=== PATIENT | female | born 1955 | race Caucasian/White ===

== ENCOUNTER 2024-11-28 16:07 | Emergency (ER) | payer OTHER, SELFPAY ==
--- NOTE | ~2024-11-28 | CT_ITS ---
CLINICAL HISTORY: hypertensive, HUFF CT head without contrast Comparison: None provided Findings: No intra-axial mass, midline shift, hydrocephalus, or acute hemorrhage. Involutional change of brain parenchyma, compatible with age. Moderate white matter disease. 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 The visualized paranasal sinuses and mastoid air cells are normal. The orbits are unremarkable. No skull fracture. IMPRESSION: 1. No acute intracranial findings. This document has been electronically signed by: Chaparrita Hernández MD on 11/28/2024 18:30:10
--- NOTE | 2024-11-28 16:10 | ECG_ITS ---
Test Reason : CP Blood Pressure : */* mmHG Vent. Rate : 67 BPM Atrial Rate : 67 BPM P-R Int : 172 ms QRS Dur : 70 ms QT Int : 418 ms P-R-T Axes : 13 6 38 degrees QTcB Int : 441 ms Normal sinus rhythm Normal ECG No previous ECGs available Referred By: Cassie Stoner Electronically Signed By: Donell Christiansen
--- NOTE | 2024-11-28 16:23 | ED.CHESTPAIN ---
HPI - Chest Pain General Chief Complaint: Recheck/Abnormal Lab/Rx Stated Complaint: High BP, headache, chest pain Time Seen by Provider: 11/28/24 16:39 Source: patient, RN notes reviewed and old records reviewed Mode of arrival: ambulatory Limitations: no limitations History of Present Illness ED Provider: Meliza JACOB narrative: 69-year-old female with past medical history significant for diabetes, hypertension, hyperlipidemia, previous CVA presents for evaluation of chest pain and headache. Patient reports a previous CVA about 6 years ago and states that she feels similar now to when she had a previous CVA. She has chronic weakness in the left side, she denies any difficulty speaking, slurred speech or facial droop. She reports that she has been compliant with all her medications except for her amlodipine which she ran out of a few days ago she takes clopidogrel but is not anticoagulated. The patient reports that her symptoms started around 10 a.m. yesterday morning, about 32 hours ago. Related Data Previous Rx's ?Medication ?Instructions ?Recorded amlodipine 10 mg tablet 10 mg PO DAILY #30 tabs 11/28/24 Allergies Allergy/AdvReac Type Severity Reaction Status Date / Time No Known Allergies (No Known Allergy Verified 11/28/24 16:26 Allergies*) Review of Systems Constitutional: Constitutional: Denies body ache(s), Denies chills, Denies fever(s) and Reports headache(s) Eyes: Eyes: Denies blurry vision and Denies exophthalmos ENT: Reports dizziness and Reports headache(s) Cardiovascular: Cardiovascular: Reports chest pain, Reports chest pain at rest and Denies dyspnea on exertion Respiratory: Respiratory: Denies cough and Denies dyspnea on exertion Gastrointestinal: Gastrointestinal: Denies abdominal pain, Denies nausea and Denies vomiting Musculoskeletal: Musculoskeletal: Denies back pain Neurologic: Reports dizziness and Reports headache(s) Psychiatric: Psychiatric: Denies anxiety PMFSH Social History Social History Use of substances other than those prescribed or required for medical reasons: Unknown Advance Directives: No Advance Directives Information Provided: No Physical Exam Vital Signs: Vital Signs: Last Vital Signs Temp 97.9 F 11/28/24 16:24 Pulse 64 11/28/24 18:00 Resp 18 11/28/24 16:24 BP 171/83 H 11/28/24 18:00 Pulse Ox 97 11/28/24 16:51 O2 Del Method Room Air 11/28/24 16:51 BMI result Body Mass Index 29.7 Const: General: healthy appearing, comfortable, no acute distress, alert and awake Nutritional Appearance: well nourished Orientation/consciousness: patient oriented x3 HEENT: Head: Yes normocephalic and Yes atraumatic Eyes: Eyelids: Yes eyelids normal Conjunctivae: conjunctivae normal Sclerae: sclerae normal Corneas: corneas normal Pupils: Equal, round and reactive pupils present EOM: EOMs intact bilaterally Neck: Neck: Yes full ROM Resp: Effort & Inspection: normal respiratory effort, able to speak in complete sentences and not labored Cardio: Rate: regular rate Rhythm: regular rhythm GI: Inspection: No distended Palpation (GI): Soft to palpation, not firm, nontender, no guarding and not rigid Skin: General skin exam: elasticity normal Neuro: General: patient oriented x3 Cranial nerves: Yes Equal, round and reactive pupils present and Yes Bilaterally intact EOM present Cognition (Neuro): normal cognition Motor exam (neuro): strength not 5/5 throughout (3/5 strength with abduction of the left upper extremity, 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 Full HPI, ROS, assessment and treatment plan per primary provider in the Main ED. Hx: 69 yo F here for eval of chest tightness, headache, and feeling dizzy x5 days. ambulates w/ cane at baseline. hx CVA 6-7 yrs ago w/ residual left sided weakness. on AC. PE/vitals: very hypertensive. residual weakness noted to LUE - 4/5 strength. patient states unchanged from prior CVA. exam otherwise nonfocal. no facial droop, slurred speech. Plan: labs, CT, ekg Reevaluation(s) Reevaluation #1: Patient's workup largely unremarkable, EKG is nonischemic, she rules out for ACS, head CT is unremarkable. Blood pressure has improved. The patient will be discharged to follow up with the PCP Time: 18:54 Medications Administered Discontinued Medications Generic Name Dose Route Start Last Admin Trade Name Freq PRN Reason Stop Dose Admin Amlodipine Besylate 10 mg 11/28/24 17:37 11/28/24 17:52 Amlodipine Besylate 10 Mg Tablet PO 11/28/24 17:38 10 mg ONCE ONE Administration Protocol Medical Decision Making Medical Decision Making [facility] Narrative: 69-year-old female presents for evaluation of headache and chest pain. She also complains of some dizziness. Her symptoms are reminiscent of her previous stroke from about 6 years ago per her report. However on exam she does have chronic right-sided weakness which is residual from her last stroke but otherwise has no focal neurologic deficits. She has no acute findings to suggest an acute CVA. Her symptoms started well over 24 hours ago and I have a very low suspicion for large vessel occlusion given that she is quite well appearing with a reassuring exam. Her blood pressure was significantly elevated on arrival at 209/87. This has improved to 170 3/86. I did give her a dose of amlodipine which she has not been able to take for the last few days because she ran out. Her labs are reassuring, she has no infectious symptoms such as fever, chills or URI symptoms. Plan for EKG but her initial troponin was negative despite over 24 hours of chest pain. patient's cerebellar exam is reassuring Differential Diagnosis Differential Diagnoses: The differential diagnosis associated with the presentation includes hypertension Chest pain Anxiety ACS CVA less likely Admission/Observation Consideration of admission/observation: Escalation of care including admission/observation considered Lab Data MDM Lab Attestation statement: I reviewed the patient's lab results. no leukocytosis or anemia. Normal platelet count. No significant electrolyte abnormalities warranting intervention. Troponin undetectable 11/28/24 16:43 11/28/24 16:43 Labs: Lab Results 11/28/24 Range/Units 16:43 WBC 7.6 (4.8-10.8) X10*3/uL RBC 4.89 (4.20-5.50) X10*6/uL Hgb 13.6 (12.0-16.0) g/dl Hct 40.1 (37.0-47.0) % MCV 82.0 (80.0-98.0) fL MCH 27.8 (27.0-33.0) pg MCHC 33.9 (31.0-35.0) g/dl RDW 14.4 (11.0-16.0) % Plt Count 279 (160-400) X10*3/uL MPV 9.7 (9.4-12.3) fL Immature Gran % (Auto) 0.5 H (0.0-0.4) % Neut % (Auto) 43.7 L (45-73) % Lymph % (Auto) 43.0 H (20-40) % [place] % (Auto) 7.3 (2-11) % Eos % (Auto) 4.6 H (0-4) % Baso % (Auto) 0.9 (0-2) % Lymph # (Auto) 3.3 (1.2-4.9) X10*3/uL [place] # (Auto) 0.6 (0.1-1.2) X10*3/uL Eos # (Auto) 0.4 (0.0-0.4) X10*3/uL Baso # (Auto) 0.1 (0.0-0.2) X10*3/uL Abs Immat Gran (auto) 0.04 H (0.00-0.03) X10*3/uL Absolute Neuts (auto) 3.3 (2.0-8.3) x10*3/uL Absolute Nucleated RBC 0.000 (0.0-0.012) X10*3/uL Nucleated RBC % (auto) 0.0 (0.0-0.2) /100WBC Sodium 142 (135-145) mmol/L Potassium 4.1 (3.3-5.1) mmol/L Chloride 106 (96-108) mmol/L Carbon Dioxide 27 (22-29) mmol/L Anion Gap 13 (12-20) BUN 12 (9-16) mg/dL Creatinine 1.04 (0.5-1.4) mg/dL Estim Creat Clear Calc 48.4 Estimated GFR 52 Random Glucose 117 H (60-115) mg/dL Calcium 8.7 (8.4-10.2) mg/dL Magnesium 1.9 (1.6-2.6) mg/dL Total Bilirubin 0.5 (0.0-1.0) mg/dL AST 81 H (5-31) U/L ALT 38 H (0-31) U/L Alkaline Phosphatase 117 (39-117) U/L Troponin I High Sens < 2.7 (<3.5-17.0) ng/L Total Protein 8.8 H (6.5-8.0) g/dL Albumin 4.3 (3.5-5.0) g/dL Lipase 27 (8-78) U/L Independent Interpretation I performed an independent interpretation of an: EKG ( normal sinus rhythm with a rate of 67 beats per minute. No ST changes) Discharge Plan Discharge Clinical Impression: Chest pain, Hypertension Patient Disposition: Home, Self-Care Instructions: Chest Pain (ED), Chronic Hypertension (ED) Additional Instructions: your workup in the ER today was reassuring. This includes your blood work, EKG and a CT scan of your head. Your blood pressure was elevated today and did improve with your amlodipine. I sent a prescription to your pharmacy. Follow up with your primary doctor, return for new or worsening symptoms Prescriptions: New amlodipine 10 mg tablet 10 mg PO DAILY Qty: 30 0RF Print Language: Sudanese
[2024-11-28 16:24] VITALS: BP 209/87; PULSE 69; RESP 18; TEMP 36.6; O2SAT 97; BMI 29.7
--- NOTE | 2024-11-28 16:38 | MHC.EDTECH ---
Patient brought into triage area,EKG taken per order and signed by provider. Patient brought back into triage area,labs were drawn and sent to lab.
[2024-11-28 16:48] LABS: MANUAL DIFF FLAG NO
[2024-11-28 16:49] LABS: Hematocrit 40.1 % (37.0-47.0); Hemoglobin 13.6 g/dl (12.0-16.0); Imm Gran Abs Auto 0.04 X10*3/uL (0.00-0.03); Imm Gran Pct Auto 0.5 % (0.0-0.4); Lymphocytes Absolute Auto 3.3 X10*3/uL (1.2-4.9); Mean Corpuscular HGB Conc 33.9 g/dl (31.0-35.0); Mean Corpuscular Hemoglobin 27.8 pg (27.0-33.0); Mean Corpuscular Volume 82.0 fL (80.0-98.0); NRBC Abs Auto 0.000 X10*3/uL (0.0-0.012); NRBC Pct Auto 0.0 /100WBC (0.0-0.2); Platelet Count 279 X10*3/uL (160-400); Red Blood Count 4.89 X10*6/uL (4.20-5.50); White Blood Count 7.6 X10*3/uL (4.8-10.8)
[2024-11-28 16:51] VITALS: BP 191/91; PULSE 68; O2SAT 97
--- OUTSIDE RECORDS SUMMARY | 2024-11-28 16:59 | XMS_ITS | Clinical Summary ---
Author Organization [facility] Address [address] [place] [address] Care Team Providers Care Maintenance Service Dispatcher Name Role Phone Wolf Quezada PA-C Primary Care Provider [phone] Source Comments PLEASE NOTE, if this patient is a minor, it may be UNLAWFUL to discuss sensitive information that is contained in these records (such as FAMILY PLANNING, MENTAL HEALTH or SUBSTANCE ABUSE) with the minor patient's parent or other person without the patient's specific authorization.[facility] Allergies No known active allergies Medications miscellaneous medical supply miscIndications:Ch ronic pain of left knee by miscellaneous route as needed (shower) Shower chair: Life time use 1 Each 12/28/19 19 Active tolterodine (DETROL LA) 4 mg 24 hr capsule Take 4 mg by mouth once daily 10/26/19 21 Active MISCELLANEOUS MEDICAL SUPPLY MISCIndications:Hi story of CVA with residual deficit,Controlled type 2 diabetes mellitus with diabetic nephropathy, with long-term current use of insulin (CMS & HHS-HCC) Commode x99 years 5'1 168 lbs 1 Each 11/25/19 23 Active lancetsIndications :Controlled type 2 diabetes mellitus with diabetic nephropathy, with long-term current use of insulin (CMS & HHS-HCC) ONCE TOUCH LANCETS, TEST BLOOD GLUCOSE ONCE DAILY DXE11.21 100 Each 01/12/20 23 Active blood-glucose meter monitoring kitIndications:Con trolled type 2 diabetes mellitus with diabetic nephropathy, with long-term current use of insulin (CMS & HHS-HCC) as needed for blood glucose monitoring ONE TOUCH KIT 1 Each 01/12/20 23 Active estradioL (ESTRACE) 0.01 % (0.1 mg/gram) vaginal cream APPLY VAGINALLY TO THE VAGINAL AREA 3 TIMES PER WEEK. Prescribed By: SHERI DONG 05/04/19 24 Active gabapentin (NEURONTIN) 100 mg capsuleIndications :Controlled type 2 diabetes mellitus with diabetic nephropathy, with long-term current use of insulin ([facility]),Foot pain, bilateral Take 1 Capsule by mouth 3 (three) times daily 90 Capsule 2 06/30/19 24 Active ONETOUCH ULTRA TEST strips Authorized by: DORY PELLETIER 01/03/20 24 Active polyethylene glycol, PEG, 3350 (GLYCOLAX) 17 gram/dose powderIndications: Constipation, unspecified constipation type TAKE 17 GRAMS BY MOUTH ONCE DAILY NEEDED FOR CONSTIPATION 510 g 11 01/19/20 24 Active amLODIPine (NORVASC) 10 mg tabletIndications: Essential hypertension, benign TAKE 1 TABLET BY MOUTH EVERY DAY 90 Tablet 1 04/05/19 25 Active levothyroxine 88 mcg tabletIndications: Hypothyroidism, unspecified type TAKE 1 TABLET BY MOUTH EVERY MORNING BEFORE BREAKFAST 90 Tablet 1 04/05/19 25 Active OYSTER SHELL CALCIUM-VIT D3 500 mg-10 mcg (400 unit) tabletIndications: Vitamin D deficiency TAKE ONE TABLET BY MOUTH THREE TIMES DAILY @ 9AM-1PM-5PM WITH MEALS 180 Tablet 1 04/14/19 25 Active mirtazapine (REMERON) 15 mg tabletIndications: Psychophysiologica l insomnia TAKE ONE TABLET BY MOUTH DAILY AT 9PM EVERY NIGHT AT BEDTIME 90 Tablet 1 05/19/19 25 Active atorvastatin (LIPITOR) 80 mg tabletIndications: Mixed hyperlipidemia Take 1 Tablet by mouth nightly at bedtime 90 Tablet 1 05/19/19 25 Active pantoprazole (PROTONIX) 40 mg EC tabletIndications: Dyspepsia Take 1 Tablet by mouth every morning before breakfast Swallow whole. Do not crush or chew. 30 Tablet 5 05/19/19 25 Active calcium carbonate-vit D3-min 600 mg-10 mcg (400 unit) tabletIndications: Osteoporosis, unspecified osteoporosis type, unspecified pathological fracture presence Take 1 Tablet by mouth once daily 90 Tablet 1 06/15/19 25 Active TRESIBA FLEXTOUCH U-100 100 unit/mL (3 mL)Indications:Con trolled type 2 diabetes mellitus with diabetic nephropathy, with long-term current use of insulin ([facility]) ADMINISTER SIX UNITS UNDER THE SKIN EVERY NIGHT AT BEDTIME 6 mL 06/15/19 25 Active MISCELLANEOUS MEDICAL SUPPLY MISCIndications:St ress incontinence by miscellaneous route once daily DX: stress incontinence Supply: wipes SHASTA: 99 100 Each 3 06/29/19 25 Active MISCELLANEOUS MEDICAL SUPPLY MISCIndications:St ress incontinence by miscellaneous route once daily DX: stress incontinence Supply: gloves size medium SHASTA: 99 100 Each 3 06/29/19 25 Active MISCELLANEOUS MEDICAL SUPPLY MISCIndications:St ress incontinence by miscellaneous route once daily DX: stress incontinence Supply: incontinence pads for women SHASTA: 99 100 Each 06/29/19 25 Active STIMULANT LAXATIVE PLUS 8.6-50 mg per tabletIndications: Constipation, unspecified TAKE ONE TABLET BY MOUTH ONCE DAILY NEEDED FOR CONSTIPATION 90 Tablet 11 07/18/19 25 Active hydrOXYzine HCL (ATARAX) 25 mg tabletIndications: Trouble in sleeping Take 1 Tablet by mouth nightly at bedtime as needed for sleep 90 Tablet 1 08/01/19 25 Active acetaminophen (TYLENOL 8 HOUR) 650 mg CR tabletIndications: Acute pain of left hip Take 1 Tablet by mouth every 8 (eight) hours as needed for pain 90 Tablet 1 08/03/19 25 Active metoprolol succinate XL (TOPROL-XL) 50 mg 24 hr tabletIndications: Essential hypertension, benign TAKE ONE TABLET BY MOUTH DAILY AT 9AM 90 Tablet 11 09/14/19 25 Active clopidogreL (PLAVIX) 75 mg tabletIndications: Cerebrovascular accident (CVA), unspecified mechanism ([facility]) TAKE ONE TABLET BY MOUTH DAILY AT 9AM 90 Tablet 09/14/19 25 Active valsartan (DIOVAN) 80 mg tablet TAKE ONE TABLET BY MOUTH DAILY AT 9AM 90 Tablet 09/14/19 25 Active pen needle, diabetic (KATHARINE 2ND GEN PEN NEEDLE) 32 gauge x ndleIndications:Co ntrolled type 2 diabetes mellitus with diabetic nephropathy, with long-term current use of insulin ([facility]) USE WITH INSULIN TWICE DAILY 100 Each 8 10/03/19 25 Active TRULICITY 1.5 mg/0.5 mL pen injectorIndication s:Type 2 diabetes mellitus without complication, with long-term current use of insulin ([facility]) INJECT 1.5MG UNDER THE SKIN ONCE A WEEK 6.5 mL 1 10/17/19 25 Active alendronate (FOSAMAX) 70 mg tabletIndications: Osteoporosis, unspecified osteoporosis type, unspecified pathological fracture presence TAKE ONE TABLET BY MOUTH EVERY 7 DAYS 14 Tablet 1 10/19/19 25 Active Active Problems Problem Noted Date Diagnosed Date 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 Not interested in surgery at this time. Psychophysiological insomnia 07/23/2016 Mixed hyperlipidemia 07/23/2016 Sleep apnea 04/15/2016 Overview (05/30/2018): 2-- - followed with sleep clinic On cpap at home. followed by [facility] sleep medicine Hypothyroidism 10/14/2012 Type 2 diabetes mellitus wit hout complication, with long-term current use of insulin ([facility]) 09/26/2012 Essential hypertension, benign 09/26/2012 Depression with anxiety 09/26/2012 Helicobacter pylori (H. pylori) 09/26/2012 Hypertriglyceridemia 09/26/2012 Immunizations Immunization Administration Dates Next Due Flu, High Dose, 65y+, Fluzon e High Dose 02/22/2023,02/03/2022,02/19/2021 Flu, Preservative Free 05/09/2020,02/02/2018 Hep B, Adult/Adol ([id number]/RECOMBIVAX-ADULT) 02/09/2019,12/27/2018 Hep B,adult,adjuvanted (HEPLISAV) 06/30/2023 INFLUENZA, SEASONAL, INJECTABLE 12/24/19 17,07/02/2015,02/12/2014,05/01 Influenza (FLUZONE), high-do se, trivalent, PF 01/06/2024,12/27/2018 MODERNA COVID-19 VACCINE BIV ALENT, BLUE CAP, 6M+ 03/11/2022 Moderna COVID-19 Vaccine, re d cap blue label, 12+ Primary Series 03/10/2021,08/05/2020,07/06/2020 PNEUMOCOCCAL CONJUGATE PCV 13 02/12/2014, 014 PNEUMOCOCCAL POLYSACCHARIDE PPV23 (Pneumovax 23) 02/19/2021,12/23/2016,12/12/2015 TDAP 08/15/2018 ZOSTER VACCINE, RECOMBINANT (SHINGRIX) ,02/09/2019 Family History Medical History Relation Name Comments Diabetes Brother 4 Diabetes Brother 5 Diabetes Brother 6 Heart Problems Father High Cholesterol Father Diabetes Mother High Cholesterol Mother Hypertension Mother Diabetes Sister 4 Diabetes Sister 5 Diabetes Sister 6 Relation Name Status Comments Brother 1 Alive Brother 2 Alive Brother 3 Alive Brother 4 Brother 5 Brother 6 Father Mother Sister 1 Alive Sister 2 Alive Sister 3 Alive Sister 4 Sister 5 Sister 6 Social History Tobacco Use Types Packs/Day Years Used Date Smoking Tobacco: Former Smokeless Tobacco: Former Quit: 02/14/2012 Alcohol Use Standard Drinks/Week Comments No 0 (1 standard drink = 0.6 oz pur e alcohol) Social Connections Answer Date Recorded How often do you feel lonely or isolated from th ose around you? 1 08/02/2024 Financial Resource Strain Answer Date R ecorded Hard to pay for: Food 1 08/02/2024 Stress Answer Date Recorded Do you feel these kinds of stress these days? 1 08/02/2024 Physical Activity Answer Date Recorded Physical Activity 0 11/19/2018 Food Insecurity Answer Date Recorded Hard to pay for: Food 1 08/02/2024 Transportation Needs Answer Date Record ed Hard to pay for: Transportation 1 08/02/2024 Housing Stability Answer Date Recorded Hard to pay for: Rent/Mortgage payment 1 08/02/2024 Safety and Environment Answer Date Haim rded Safety 1 06/30/2023 Utilities Answer Date Recorded Hard to pay for: Utilities 1 08/02 Employment Answer Date Recorded Stress 0 06/16/2021 Comments No Sex and Gender Information Value Date Recorded Sex Assigned at Female 01/06/2017 11:49 AM PDT Legal Sex Female 11:36 AM PDT Gender Identity Female 01/06/2017 11:49 AM PDT Sexual Orientation Straight 01/06/2017 11 :49 AM PDT Last Filed Vital Signs Vital Sign Reading Time Taken Comments Blood Pressure 114/78 05/19/2024 9:53 AM EST Pulse 73 05/19/2024 9:53 AM EST Temperature 36.8 C (98.3 F) 05/19/2024 9:53 AM EST Respiratory Rate 16 05/19/2024 9:53 AM EST Oxygen Saturation 97% 05/19/2024 9:53 AM EST Inhaled Oxygen Concentration - - Weight 71.2 kg (157 lb) 05/19/2024 9:53 AM EST Height 154.9 cm (5' 1 ) 01/06/2024 10:15 AM EDT Body Mass Index 29.66 01/06/2024 10:15 AM EDT Plan of Treatment Upcoming Encounters Date Type Department Care Team (Late st Contact Info) Description 12/05/2024 10:40 AM EDT [facility] [address] [place] [phone] Jennifer Boone RN [phone] [place] [address] 01/12/2025 10:40 AM EDT Office Visit [facility] [address] [place] [phone] Wolf Quezada PA-C [address] [place] [address] Health Maintenance Due Date Last Done Comments Medicare Annual Wellness Visit 1971 CT Colonography 1998 Colonoscopy 1998 Fecal DNA 1998 Flexible Sigmoidoscopy 1998 Colorectal Cancer Screening 08/20/2019 FIT/gFOBT 08/20/2019 08/19/2018 Dental Prophy 05/12/2024 11/08/2023, 06/23/2023 Dental Perio Charting 06/24/2024 06/23/2023 Hemoglobin A1c 08/16/2024 05/19/2024, 09/27, 05/13/2023, Additional history exists Falls Prevention 10/21/2024 10/22/2023, 07/2022, 05/22/2021, Additional history exists Depression Monitoring 11/02/2024 08/02/2024 , 10/22/2023, 06/30/2023, Additional history exists Diabetes Foot Exam 11/02/2024 11/03/2023, 1 04/21/2020, 08/15/2018 Breast Cancer Screening (Mammogram) 11/09/2024 11/10/2023, 10/12/2022, 04/14/2022, Additional history exists Dental BW 11/09/2024 11/08/2023, 05/28, 12/17/2022 Dental Examination 11/09/2024 11/08/2023, 0 06/23/2023, 12/17/2022 [id number] ( season) 2024 03/11/2022, 03/10/2021, 08/05/2020, Additional history exists Imm-Influenza (#1) 2024 01/06/2024, 1 04/24/2022, 02/03/2022, Additional history exists Lipid Screening 05/19/2025 05/19/2024, 09/27, 05/13/2023, Additional history exists Serum Creatinine 05/19/2025 05/19/2024, , 05/13/2023, Additional history exists TSH Monitoring 05/19/2025 05/19/2024, 09/27, 06/30/2023, Additional history exists Urine Albumin Creatinine Rat io Screening 05/19/2025 05/19/2024, 05/13/2023, 05/22/2021, Additional history exists Retinopathy Screening 07/18/2025 07/18/2024 , 10/08/2022, 02/11/2018 (Managed by Outside Provider) Tobacco Screening 09/13/2025 09/13/2024, , 12/11/2022 Bone Density Screening 11/09/2025 11/10/2023, 2023 Dental FMX/Pano 01/24/2028 01/21/2023, 12/17/2022 Imm-DTaP/Tdap/Td (2 - Td or Tdap) 08/15/2028 019 Hepatitis C Screening Completed 02/13/2019 Imm-Zoster, Recombinant Completed 05/09/2020, 02/09 Imm-Pneumococcal 50+ Completed 02/19/2021, 12/23/2016, 12/12/2015, Additional history exists Imm-Hepatitis B Completed 06/30/2023, 01/27, 12/27/2018 Alcohol and Drug Screen Completed 08/03/19, 10/22/2023, 05/13/2023, Additional history exists Goals Goal Patient Goal Type Associated Problems Recent Progress Patient-Stated? Author Blood Pressure < 130/80 Blood Pressure Essential hypertension, benign 114/78(2024 9:53 AM EST) No Roc Packer, PharmD Have 3 meals a day Diet No Pam Acuña PA-C Note: 3 meals daily and check blood sugars Take insulin with each meal HEMOGLOBIN A1C < 7.0 Result Component Type 2 diabetes mellitus without complication, with long-term current use of insulin ([facility]) 6.6( 11:12 AM EST) No Roc Packer, PharmD Procedures Procedure Name Priority Date/Time Associated Diagnosis Comments REFERRAL SCANNED DOCUMENT 09/07/2024 3:00 AM EDT EYE EXAM 07/18/2024 3:00 AM EDT MICROALBUMIN/CREATINI NE RATIO, URINE, RANDOM Routine 05/19/2024 11:20 AM EST Controlled type 2 diabetes mellitus with diabetic nephropathy, with long-term current use of insulin ([facility]) THYROID PANEL WITH TSH Routine 05/19/2024 11:12 AM EST Hypothyroidism, unspecified type COMPREHENSIVE METABOLIC PANEL Routine 05/19/2024 11:12 AM EST Essential hypertension, benign Controlled type 2 diabetes mellitus with diabetic nephropathy, with long-term current use of insulin ([facility]) LIPID PANEL Routine 05/19/2024 11:12 AM EST Essential hypertension, benign Controlled type 2 diabetes mellitus with diabetic nephropathy, with long-term current use of insulin ([facility]) HGBA1C W/MPG Routine 05/19/2024 11:12 AM EST Controlled type 2 diabetes mellitus with diabetic nephropathy, with long-term current use of insulin ([facility]) HISTORIC DEXA SCAN 11/10/2023 3: 00 AM EDT REFERRAL FOR MAMMOGRAM Routine 11/10/2023 3:00 AM EDT Breast cancer screening by mammogram BITEWINGS - FOUR RADIOGRAPHIC IMAGES Routine 11/08/2023 10:20 AM EDT Caries Dental root caries Encounter for dental examination and cleaning with abnormal findings 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 PROPHYLAXIS - ADULT Routine 11/08/2023 1 0:20 AM EDT Caries Encounter for dental examination and cleaning with abnormal findings 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 PERIODIC ORAL EVALUATION ESTABLISHED PATIENT Routine 11/08/2023 10:20 AM EDT Caries Encounter for dental examination and cleaning with abnormal findings 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 5 PANORAMIC RADIOGRAPHIC IMAGE Routine 01/21/2023 2:00 PM EDT Retained tooth root HEPATITIS C ANTIBODY Routine 02/13/2019 11:45 AM EST Need for hepatitis C screening test FECAL OCCULT BLOOD HEMOCCULT X3, JUAN CARLOS DINA (POCT) Routine 08/19/2018 4:12 PM EDT Colonoscopy refused from Last 3 Months or Most Recently Relevant to Health Maintenance Results * REFERRAL SCANNED DOCUMENT (09/07/2024 3:00 AM EDT) 09/07/2024 3:00 AM EDT us Danieller Pilar [facility]-C SCAN REFERRAL Final Result * EYE EXAM (07/18/2024 3:00 AM EDT) 07/18/2024 3:00 AM EDT Wolf Quezada PA-C OTHER Final Result * MICROALBUMIN/CREATININE RATIO, URINE, RANDOM (05/19/2024 11:20 AM EST) CREATININE, RANDOM URINE 245 20 - 275 mg/dL [employer] MICROALBUMIN 3.8 mg/dL [facility] Comment: Reference Range Not established MICROALBUMIN/CREA TININE RATIO, RANDOM URINE 16 <30 mg/g creat [employer] Comment: The ADA defines abnormalities in albumin excretion as follows: Albuminuria Category Result (mg/g creatinine) Normal to Mildly increased <30 Moderately increased 30-299 Severely increased > OR = 300 The ADA recommends that at least two of three specimens collected within a 3-6 month period be abnormal before considering a patient to be within a diagnostic category. Urine Urine specimen / Unknown 05/19/2024 11:20 AM EST 05/19/2024 11:21 AM EST Wolf Pilar [facility] LAB URINE AMBULATORY Final R esult [employer] [address] [place] [id number], [employer] [address] [place] [phone] * (ABNORMAL) HGBA1C W/MPG (05/19/2024 11:12 AM EST) HEMOGLOBIN A1C 6.6(H) <5.7 % of total Hgb [employer] Comment: For someone without known diabetes, a hemoglobin A1c value of 6.5% or greater indicates that they may have diabetes and this should be confirmed with a follow-up test. For someone with known diabetes, a value <7% indicates that their diabetes is well controlled and a value greater than or equal to 7% indicates suboptimal control. A1c targets should be individualized based on duration of diabetes, age, comorbid conditions, and other considerations. Currently, no consensus exists regarding use of hemoglobin A1c for diagnosis of diabetes for children. MEAN PLASMA GLUCOSE 158 mg/dL (calc) [employer] [facility] Blood Blood / Unknown 05/19/2024 1 1:12 AM EST 05/19/2024 11:13 AM EST Narrative [facility] - 05/20/2024 5:18 AM EST FASTING:YES Wolf Quezada PA-C LAB - BLOOD DRAW Edited Resu lt - Final Performing Organization Address City/[facility]/ZIP Co de Phone Number [employer] [address] [address], [employer] [address] [phone] * (ABNORMAL) THYROID PANEL WITH TSH (05/19/2024 11:12 AM EST) TSH 1.90 0.40 - 4.50 mIU/L [employer] [facility] T-3 UPTAKE 30 22 - 35 % [employer] [facility] T-4 (THYROXINE), TOTAL 13.2(H) 5.1 - 11.9 mcg/dL [employer] [facility] FREE T4 INDEX (T7) 4.0(H) 1.4 - 3.8 [employer] [facility] Blood Blood / Unknown 05/19/2024 1 1:12 AM EST 05/19/2024 11:13 AM EST Narrative [facility] - 05/20/2024 5:18 AM EST FASTING:YES Wolf Quezada PA-C LAB - BLOOD DRAW Final Resul t Performing Organization Address [facility]/ZIP Co de Phone Number [employer] [address] [address], [employer] [address] [phone] * (ABNORMAL) LIPID PANEL (05/19/2024 11:12 AM EST) CHOLESTEROL, TOTAL 106 <200 mg/dL [facility] HDL CHOLESTEROL 34(L) > OR = 50 mg/dL [employer] [facility] TRIGLYCERIDES 85 <150 mg/dL [facility] LDL-CHOLESTEROL 55 99 mg/dL (calc) [employer] [facility] Comment: Reference range: <100 Desirable range <100 mg/dL for primary prevention; <70 mg/dL for patients with CHD or diabetic patients with > or = 2 CHD risk factors. LDL-C is now calculated using the Robert calculation, which is a validated novel method providing better accuracy than the Friedewald equation in the estimation of LDL-C. Randy SS et al. OZZY. 2013;310(19): 7125-0133 (http://education.LaunchPoint/faq/MDP121) CHOL/HDLC RATIO 3.1 <5.0 (calc) [facility] NON-HDL CHOLESTEROL 72 <130 mg/dL (calc) [employer] Comment: For patients with diabetes plus 1 major ASCVD risk factor, treating to a non-HDL-C goal of <100 mg/dL (LDL-C of <70 mg/dL) is considered a therapeutic option. Blood Blood / Unknown 05/19/2024 1 1:12 AM EST 05/19/2024 11:13 AM EST Narrative [facility] - 05/20/2024 5:18 AM EST FASTING:YES us Wolf Quezada PA-C LAB - BLOOD DRAW Final Resul t [employer] [address] [address], [employer] [address] [phone] * (ABNORMAL) COMPREHENSIVE METABOLIC PANEL (05/19/2024 11:12 AM EST) GLUCOSE 115(H) 65 - 99 mg/dL [employer] [facility] Comment: Fasting reference interval For someone without known diabetes, a glucose value between 100 and 125 mg/dL is consistent with prediabetes and should be confirmed with a follow-up test. UREA NITROGEN (BUN) 16 7 - 25 mg/dL [employer] CREATININE (blood) 0.79 0.60 - 1.00 mg/dL [employer] EGFR 80 > OR = 60 mL/min/1. 73m2 [employer] [facility] BUN/CREATININE RATIO SEE NOTE: [employer] [facility] Comment: Not Reported: BUN and Creatinine are within reference range. SODIUM 139 135 - 146 mmol/L [employer] [facility] POTASSIUM 3.7 3.5 - 5.3 mmol/L [employer] [facility] CHLORIDE 104 98 - 110 mmol/L [employer] CARBON DIOXIDE 24 20 - 32 mmol/L [employer] CALCIUM 8.8 8.6 - 10.4 mg/dL [employer] PROTEIN, TOTAL 8.6(H) 6.1 - 8.1 g/dL [employer] ALBUMIN 4.1 3.6 - 5.1 g/dL [employer] [facility] GLOBULIN 4.5(H) 1.9 - 3.7 g/dL (calc) [employer] ALBUMIN/GLOBULI N RATIO 0.9(L) 1.0 - 2.5 (calc) [employer] [facility] BILIRUBIN, TOTAL 0.6 0.2 - 1.2 mg/dL [employer] ALKALINE PHOSPHATASE 89 37 - 153 U/L [employer] AST 40(H) 10 - 35 U/L [employer] [facility] ALT 21 6 - 29 U/L [employer] [facility] Blood Blood / Unknown 05/19/2024 1 1:12 AM EST 05/19/2024 11:13 AM EST Narrative [facility] - 05/20/2024 5:18 AM EST FASTING:YES us Wofl Quezada PA-C LAB - BLOOD DRAW Final Resul t [facility] [address] [address], [employer] [address] [phone] * HISTORIC DEXA SCAN (11/10/2023 3:00 AM EDT) 11/10/2023 3:00 AM EDT us Wolf Quezada PA-C IMG DXA Final Result * REFERRAL FOR MAMMOGRAM SCREENING (11/10/2023 3:00 AM EDT) 11/10/2023 3:00 AM EDT Wolf Quezada PA-C IMG RFL MAMMO Final Result * Hep C Antibody (02/13/2019 11:45 AM EST) HEPATITIS C VIRUS SCREEN NEGATIVE NEGATIVE [facility] Blood specimen (specimen) Blood / Unknown 02/13/2019 11:45 AM EST 02/13/2019 1:14 PM EST Narrative [facility] - 02/13/2019 7:58 PM EST [facility] [employer], [place] [address] Director Of First Impressions - Paty Farrell MD [place] ID [id number] ORD# [id number] Robe Mcclellan NP LAB - BLOOD DRAW [place] [address], * (ABNORMAL) STOOL OCCULT BLOOD (POCT) (08/19/2018 4:12 PM EDT) FECAL OCCULT BLOOD NEGATIVE NEGATIVE [facility] POCT FECAL OCCULT BLOOD #2 NEGATIVE NEGATIVE [facility] POCT FECAL OCCULT BLOOD #3 NEGATIVE NEGATIVE [facility] POCT Stool specimen (specimen) Stool specimen / Unknown 08/19/2018 4:12 PM EDT [facility] BODY FLUIDS AND STOOLS AMBUL ATORY Final Result [facility] POCT from Last 3 Months or Most Recently Relevant to Health Maintenance Insurance [employer] [facility] - DENTAL [employer] [facility] [employer] Advance Directives Healthcare Agents on File Name Relationship Healthcare Agent [facility] Communication Siria Nugent Daughter Health Care Agent Care Teams Maintenance Service Dispatcher Relationship Specialty Start Date End Date Wolf Quezada PA-C [address] [place] [address] PCP - General [facility] 01/19/20
--- OUTSIDE RECORDS SUMMARY | 2024-11-28 16:59 | XMS_ITS | Clinical Summary ---
Author Organization 175 [facility] Address [address] [place] [address] Phone Care Team Providers Care Clinical Physician Assistant Name Role Phone Blaze Bradley Primary Care Provider [phone] Allergies No known active allergies Medications alendronate (FOSAMAX) 70 mg tablet Take 1 tablet (70 mg total) by mouth every 7 (seven) days. 4 Active atorvastatin (LIPITOR) 80 mg tablet Take 1 tablet (80 mg total) by mouth at bedtime. 4 Active Oyster Shell Calcium-Vit D3 500 mg-10 mcg (400 unit) per tablet TAKE ONE TABLET BY MOUTH THREE TIMES DAILY @ 9AM-1PM-5PM WITH MEALS 4 Active Tresiba FlexTouch U-100 100 unit/mL (3 mL) injection pen INJECT SIX UNITS UNDER THE SKIN EVERY NIGHT AT BEDTIME 4 Active mirtazapine (REMERON) 15 mg tablet Take 1 tablet (15 mg total) by mouth at bedtime. 4 Active pantoprazole (PROTONIX) 40 mg EC tablet TAKE 1 TABLET BY MOUTH EVERY MORNING BEFORE BREAKFAST. SWALLOW WHOLE. DO NOT CRUSH OR CHEW 4 Active clopidogreL (PLAVIX) 75 mg tablet TAKE ONE TABLET BY MOUTH DAILY AT 9AM 4 Active hydrOXYzine HCL (ATARAX) 25 mg tablet TAKE ONE TABLET BY MOUTH AT BEDTIME NEEDED FOR SLEEP AND ANXIETY 4 Active valsartan (DIOVAN) 80 mg tablet TAKE ONE TABLET BY MOUTH DAILY AT 9AM 4 Active amLODIPine (NORVASC) 10 mg tablet Take 1 tablet (10 mg total) by mouth 1 (one) time each day. 4 Active levothyroxine (SYNTHROID, LEVOTHROID) 88 mcg tablet Take 1 tablet (88 mcg total) by mouth 1 (one) time each day before breakfast. 4 Active Trulicity 1.5 mg/0.5 mL pen injector injection INJECT 1.5 MG SUBCUTANEOUSLY ONCE A WEEK 4 Active metoprolol succinate (TOPROL-XL) 50 mg 24 hr tablet TAKE ONE TABLET BY MOUTH DAILY AT 9AM 4 Active Stimulant Laxative Plus 8.6-50 mg per tablet TAKE ONE TABLET BY MOUTH ONCE DAILY NEEDED FOR CONSTIPATION FOR UP TO 30 DAYS 4 Active polyethylene glycol (PEG) 17 gram/dose oral powder TAKE 17 GRAMS BY MOUTH ONCE DAILY NEEDED FOR CONSTIPATION 4 Active TRUEplus Pen Needle 32 gauge x 5/32 needle USE WITH INSULIN TWICE DAILY 4 Active estradioL (ESTRACE) 0.01 % (0.1 mg/gram) vaginal cream APPLY VAGINALLY TO THE VAGINAL AREA 2 TIMES PER WEEK 4 Active tolterodine LA (DETROL LA) 4 mg 24 hr capsule TAKE ONE CAPSULE BY MOUTH DAILY AT 9AM 4 Active gabapentin (NEURONTIN) 100 mg capsule Take 1 capsule (100 mg total) by mouth. 4 Active bisacodyL (DULCOLAX) 5 mg EC tablet Take 2 tablets by mouth right before beginning bowel prep. See instructions provided by the office 2 tablet 5 Active polyethylene glycol (Golytely) 236-22.74-6.74 -5.86 gram solution Take 4L by mouth once for one dose. May substitue any PEG. Starting at 6PM the night before your procedure drink 1 8oz glasses at your own pace until you complete half of the gallon. Finish 2nd half of the gallon 5 hours before your procedure. 4000 mL 5 Active bisacodyL (DULCOLAX) 5 mg EC tablet Take 2 tablets by mouth right before beginning bowel prep. See instructions provided by the office 2 tablet 5 Active polyethylene glycol (Golytely) 236-22.74-6.74 -5.86 gram solution Take 4L by mouth once for one dose. May substitue any PEG. Starting at 2PM the day before your procedure drink 1 8oz glasses at your own pace until you complete half of the gallon. Finish 2nd half of the gallon at 8PM. 4000 mL 5 Active Encounters Date Type Department Care Team Description 11/08/2024 Telephone Gastroenterology - [place] 175 [facility] [address] [address] Vickey Burris DO 11/07/2024 7:24 AM EDT Anesthesia Event [facility] Endoscopy [address] [place] [address] Arin Bhakta CRNA 10/12/2024 Telephone Gastroenterology [facility] 175 [facility] [address] [phone] Jailyn Hernandez LPN from Last 3 Months Social History Tobacco Use Types Packs/Day Years Used Date Smoking Tobacco: Never Assessed Comments Unknown Sex and Gender Information Value Date Recorded Sex Assigned at Not on file Legal Sex Female 12:27 AM EST Gender Identity Not on file Sexual Orientation Not on file Last Filed Vital Signs Vital Sign Reading Time Taken Comments Blood Pressure - - Pulse - - Temperature - - Respiratory Rate - - Oxygen Saturation - - Inhaled Oxygen Concentration - - Weight 73 kg (161 lb) 08/08/2024 10:00 AM EDT Height 157.5 cm (5' 2 ) 08/08/2024 10:00 AM EDT Body Mass Index 29.45 08/08/2024 10:00 AM EDT Plan of Treatment Upcoming Encounters Date Type Department Care Team (Late st Contact Info) Description 02/02/2025 10:00 AM EST Appointment [facility] Endoscopy [address] [place] [address] Vickey Burris DO [address] [place] [address] Health Maintenance Due Date Last Done Comments Diabetes: Annual Foot Exam 1963 Diabetes: Annual Retina Eye Exam 1965 Colorectal Cancer Screening: Colonoscopy 03/01/2022 Falls Risk Assessment 03/01/2022 Social Influencers of Health Screening 03/01/2022 Depression Screening 03/29/2024 Diabetes: Blood Sugar Control Test (HGBA1C) 11/16/2024 05/19/2024 COVID-19 Vaccine ( season) 2024 03/11/2022, 03/10/2021, 08/05/2020, Additional history exists Influenza Vaccine (#1) 2024 , 02/22/2023, 02/03/2022, Additional history exists Diabetes: Annual Urine Albumin-Creatinine Ratio (uACR) 05/19/2025 05/19/2024, 05/13/2023, 05/22/2021 Diabetes: Annual GFR (Glomerular Filtration Rate) 05/19/2025 05/19/2024 Hypertension/CHF/CAD Annual BMP Blood Test 05/19/2025 05/19/2024 Breast Cancer Screening 11/09/2025 11/10/19, 09/03/2021, 07/22/2020 RSV Immunization Adult Patients (1 - 1-dose 75+ series) 2028 DTaP,Tdap,and Td Vaccines (2 - Td or Tdap) 08/15/2028 08/15/2018 Cholesterol Screening (Lipid Panel) 05/19/2029 05/19/2024, 05/19/2024, 10/22/2023, Additional history exists Osteoporosis Screening (Bone Density Screening) 11/09/2033 11/10/2023, 07/22/2020 Hepatitis C Screening Completed 02/13/2019, 019 Zoster Vaccines Completed 05/09/2020, 02/09/2019 Pneumococcal Vaccine: 50+ Years Completed 02/19/2021, 12/23/2016, 12/12/2015, Additional history exists Hepatitis B Vaccines Completed 06/30/2023, 02/09/2019, 12/27/2018 HIB Vaccines Aged Out No longer eligi ble based on patient's age to complete this topic HPV Vaccines Aged Out No longer eligi ble based on patient's age to complete this topic Hepatitis A Vaccines Aged Out No long er eligible based on patient's age to complete this topic IPV Vaccines Aged Out No longer eligi ble based on patient's age to complete this topic MMR Vaccines Aged Out No longer eligi ble based on patient's age to complete this topic Meningococcal ACWY Vaccine Aged Out N o longer eligible based on patient's age to complete this topic Meningococcal B Vaccine Aged Out No l onger eligible based on patient's age to complete this topic RSV Immunization Patients Under 20 months Aged Out No longer eligible based on patient's age to complete this topic Varicella Vaccines Aged Out No longer eligible based on patient's age to complete this topic Procedures Procedure Name Priority Date/Time Associated Diagnosis Comments [facility] SCREENING DIGITAL Routine 11/10/2023 4:08 PM EDT Encounter for screening mammogram for malignant neoplasm of breast [facility] DEXA AXIAL SKELETON Routine 11/10/2023 10:31 AM EDT Encounter for screening for osteoporosis from Last 3 Months or Most Recently Relevant to Health Maintenance Results * [facility] SCREENING DIGITAL (11/10/2023 4:08 PM EDT) Anatomical Region Laterality Modality Mammography 11/10/2023 9:39 AM EDT Narrative 11/10/2023 4:08 PM EDT [facility] Diagnostic Imaging Department [address] [place] [address] Patient: LUCY KAN /Age/Sex: 1955 - 68 - F Unit#: [id number] Location/Status: SPDIMAM/REG CLI Mnemonic/Ordering Site: [facility] Ordering Physician: BLAZE BRADLEY PA-C [facility] Screening Digital - 11/10/23 - 1013 Report Status:Signed EXAM: [facility] Screening Digital EXAM DATE AND TIME: 11/10/2023 10:14 AM HISTORY: Screening. Previous bilateral breast biopsies, pathology benign. COMPARISON: 09/03/21, 07/22/20, 06/14/18 TECHNIQUE: Bilateral digital breast tomosynthesis was performed in the CC and MLO projections. Computer aided detection with [employer] 3D 3.1 was employed. TISSUE DENSITY: b. There are scattered areas of fibroglandular density. FINDINGS: No suspicious masses, grouped microcalcifications, or areas of architectural distortion are seen. Numerous benign rim calcifications are again seen. A biopsy marker is present in each breast. Vascular calcification is present. The skin is unremarkable. IMPRESSION: Stable mammographic appearance of the breasts. No evidence of malignancy is seen. A negative mammogram in the presence of a clinically suspicious palpable abnormality does not preclude the possibility of malignancy or alter the indicat ions for biopsy. BI-RADS: Category 2: Benign RECOMMENDATION(S): 1: Routine screening mammogram BILATERAL in 1 year. Dictating Physician: GEMINI ALMANZA MD Electronically Signed by: GEMINI ALMANZA MD Dic Date/Time: 11/10/23 1607 Sign date/Time: 11/10/231607 Procedure Note Gemini Almanza MD - 01/12/2024 [facility] Diagnostic Imaging Department [address] [place] [address] Patient: RUEL LEÓNLUCY /Age/Sex: 1955 - 68 -F Unit#: [id number] Location/Status: SPDIMAM/REG CLI [facility]em[facility] Ordering Physician: BLAZE BRADLEY PA-C [facility] Screening Digital - 11/10/23 - 1013 Report Status:Signed EXAM: [facility] Screening Digital EXAM DATE AND TIME: 11/10/2023 10:14 AM HISTORY: Screening. Previous bilateral breast biopsies, pathologybenign. COMPARISON: 09/03/21, 07/22/20, 06/14/18 TECHNIQUE: Bilateral digital breast tomosynthesis was performed in the CCand MLO projections. Computer aided detection with [employer] 3D 3.1was employed. TISSUE DENSITY: b. There are scattered areas of fibroglandular density. FINDINGS: No suspicious masses, grouped microcalcifications, or areas ofarchitectural distortion are seen. Numerous benign rim calcifications are again seen. Abiopsy marker is present in each breast. Vascular calcification is present. The skin is unremarkable. IMPRESSION: Stable mammographic appearance of the breasts. No evidence of malignancyis seen. A negative mammogram in the presence of a clinically suspicious palpable abnormality does not preclude the possibility of malignancy or alter theindicat ions for biopsy. BI-RADS: Category 2: Benign RECOMMENDATION(S): 1: Routine screening mammogram BILATERAL in 1 year. Dictating Physician: GEMINI ALMANZA MD Electronically Signed by: GEMINI ALMANZA MD Dic Date/Time: 11/10/23 1607 Sign date/Time: 11/10/23 1608 Blaze LIU IMG BI PROCEDURES Final Result * [facility] DEXA AXIAL SKELETON (11/10/2023 10:31 AM EDT) Anatomical Region Laterality Modality Mammography 11/10/2023 9:39 AM EDT Narrative 11/10/2023 10:31 AM EDT [facility] Diagnostic Imaging Department [address] [place] [id number] Patient: LUCY KAN /Age/Sex: 1955 - 68 - F Unit#: [id number] Location/Status: [facility] CLI Mnemonic/Ordering Site: [facility] Ordering Physician: BLAZE BRADLEY PA-C [facility] Dexa Axial Skeleton - 11/10/23 - 1010 Report Status:Signed HISTORY: The patient is a 68-year-old postmenopausal female with clinical concern for metabolic bone disease. FINDINGS: Dual energy x-ray absorptiometry of the lumbar spine and femurs is performed. The mean bone mineral density at L1-3 is 1.179 gm/cm2 which is 101% of that of young normals and 116% of that of age matched controls. This yields a T-score of 0.1 and a Z-score of 1.3 and there is therefore no evidence of osteoporosis or osteopenia here. The mean bone mineral density of the femurs bilaterally is 0.748 gm/cm2 which is 74% of that of young normals and 87% of that of age matched controls. This yields a T-score of -2.1 and a Z-score of -0.9 which is diagnostic of osteopenia. The T-score of the entire right femur is -2.7 which is diagnostic of osteoporosis. IMPRESSION: 1. Osteoporosis. There has been a decrease of 2.2% in bone mineral density in the lumbar spine since the prior examination of 07/22/2020. There has been an increase of 5.1% in bone mineral density in the right femur and a decrease of 6.7% in bone mineral density in the left femur. 2. FRAX analysis yields a 10-year probability of major osteoporotic fracture of 9.2% and a 10-year probability of hip fracture of 1.2%. Code 79819 Dictating Physician: USAMA LORENZ MD Electronically Signed by: USAMA LORENZ MD Dic Date/Time: 11/10/23 1026 Sign date/Time: 11/10/23 1031 Procedure Note Usama Lorenz MD - 01/12/2024 [facility] Diagnostic Imaging Department [address] [place], [place] [id number] Patient: LUCY KAN/Age/Sex: 1955 - 68 -F Unit#: [id number] Location/Status: [facility] CLI [facility] Ordering Physician: BLAZE BRADLEY PA-C [facility] Dexa Axial Skeleton - 11/10/23 - 1010 Report Status:Signed HISTORY: The patient is a 68-year-old postmenopausal female withclinical concern for metabolic bone disease. FINDINGS: Dual energy x-ray absorptiometry of the lumbar spine and femursis performed. The mean bone mineral density at L1-3 is 1.179 gm/cm2 which is101% of that of young normals and 116% of that of age matched controls. Thisyields a T-score of 0.1 and a Z-score of 1.3 and there is therefore no evidenceof osteoporosis or osteopenia here. The mean bone mineral density of the femurs bilaterally is 0.748 gm/rk1ooewk is 74% of that of young normals and 87% of that of age matched controls.This yields a T-score of -2.1 and a Z-score of -0.9 which is diagnostic of osteopenia. The T-score of the entire right femur is -2.7 which isdiagnostic of osteoporosis. IMPRESSION: 1. Osteoporosis. There has been a decrease of 2.2% in bone mineraldensity in the lumbar spine since the prior examination of 07/22/2020. There has beenan increase of 5.1% in bone mineral density in the right femur and a decreaseof 6.7% in bone mineral density in the left femur. 2. FRAX analysis yields a 10-year probability of major osteoporoticfracture of 9.2% and a 10-year probability of hip fracture of 1.2%. Code 37022 Dictating Physician: USAMA LORENZ MD Electronically Signed by: USAMA LORENZ MD Dic Date/Time: 11/10/23 1026 Sign date/Time: 11/10/23 1031 Blaze [facility]U IMG BI PROCEDURES Final Result from Last 3 Months or Most Recently Relevant to Health Maintenance Insurance [facility] [employer] MEDICAID [place] [id number] Care Teams Clinical Physician Assistant Relationship Specialty Start Date End Date Blaze Bradley PA [address] [place] [address] PCP - General 05/22/24
[2024-11-28 17:02] LABS: Alanine Aminotransferase 38 U/L (0-31); Albumin Level 4.3 g/dL (3.5-5.0); Alkaline Phosphatase 117 U/L (39-117); Anion Gap 13 (12-20); Aspartate Amino Transferase 81 U/L (5-31); Blood Urea Nitrogen 12 mg/dL (9-16); Calcium 8.7 mg/dL (8.4-10.2); Carbon Dioxide 27 mmol/L (22-29); Chloride 106 mmol/L (96-108); Creatinine Clr Calc Pharmacy 48.4; Estimated Glomerular Filt Rate 52; Lipase 27 U/L (8-78); Magnesium 1.9 mg/dL (1.6-2.6); Potassium 4.1 mmol/L (3.3-5.1); Sodium 142 mmol/L (135-145); Total Protein 8.8 g/dL (6.5-8.0)
[2024-11-28 17:10] LABS: Troponin-I High Sensitivity < 2.7 ng/L (<3.5-17.0)
[2024-11-28 17:52] VITALS: BP 173/86
[2024-11-28 18:00] VITALS: BP 171/83; PULSE 64
[2024-11-28 19:06] VITALS: BP 167/94; PULSE 65; RESP 18; TEMP 36.7; O2SAT 97
== END 2024-11-28 19:13 | disposition home or self-care (01) ==
PROVIDERS: Physician Assistant Medical; Emergency Provider Emergency Medicine; PCP Physician Assistant Medical
DX: R07.9 Chest pain, unspecified (principal); I10 Essential (primary) hypertension; R51.9 Headache, unspecified; Z86.73 Personal history of transient ischemic attack (TIA), and cerebral infarction without residual deficits
CPT/HCPCS: 36415; 70450; 80053; 83690; 83735; 84484; 85025; 93005; 99284

== ENCOUNTER → 2024-11-28 16:10 | Outpatient (BNV) | payer OTHER, SELFPAY | PROVIDERS: Emergency Provider Emergency Medicine; PCP Physician Assistant Medical; Visit Provider Internal Medicine Cardiovascular Disease | DX: R07.9 Chest pain, unspecified (principal) | CPT/HCPCS: 93010 ==

== ENCOUNTER → 2024-11-28 16:24 | Outpatient (BNV) | payer OTHER, SELFPAY | PROVIDERS: Emergency Provider Emergency Medicine; PCP Physician Assistant Medical; Visit Provider Radiology Diagnostic Radiology | DX: R51.9 Headache, unspecified (principal) | CPT/HCPCS: 70450 ==